=== PATIENT | female | born 1940 | race American Indian/Alaskan Native ===

== ENCOUNTER 2019-09-04 21:04 | Inpatient (IN) | payer MEDICARE ==
--- NOTE | 2019-09-04 22:14 | Emergency Department Report ---
Blank Doc - Documentation Documentation: 78-year-old female that presents with aggressive behavior and needs medical cl earance for [facility]. This initial assessment/diagnostic orders/clinical plan/treatment(s) is/are subject to change based on patient's health status, clinical progression and re- assessment by fellow clinical providers in the ED. Further treatment and workup at subsequent clinical providers discretion. Patient/guardians urged not to elope from the ED as their condition may be serious if not clinically assessed and managed. Initial orders include: 1- Patient sent to MAIN ED for further evaluation and treatment 2- labs 3- UA
[2019-09-04 23:37] LABS: Basophils % (Auto) 0.5 % (0.0-1.8); Eosinophils # (Auto) 0.1 K/mm3 (0.0-0.4); Eosinophils % (Auto) 1.7 % (0.0-4.3); Hematocrit 41.3 % (30.3-42.9); Hemoglobin 13.2 gm/dl (10.1-14.3); Lymphocytes # (Auto) 1.3 K/mm3 (1.2-5.4); Lymphocytes % (Auto) 16.4 % (13.4-35.0); Mean Corpuscular HGB Conc 32 % (30-34); Mean Corpuscular Volume 94 fl (79-97); Monocytes # (Auto) 0.5 K/mm3 (0.0-0.8); Monocytes % (Auto) 6.4 % (0.0-7.3); Platelet Count 347 K/mm3 (140-440); Red Blood Count 4.38 M/mm3 (3.65-5.03)
[2019-09-05 00:03] LABS: Albumin 3.7 g/dL (3.9-5); Calcium 9.8 mg/dL (8.4-10.2)
--- NOTE | 2019-09-05 00:14 | Emergency Department Report ---
ED Psych HPI - General Chief Complaint: Medical Clearance Stated Complaint: MEDICAL CLEARANCE Time Seen by Provider: 09/04/19 22:12 Source: patient Mode of arrival: Ambulatory - History of Present Illness Initial Comments: 78-year-old female with a past medical history dementia, hypertension and as per medical record seizures, hypothyroidism, and elevated cholesterol presents to the hospital complains of combative behavior. Patient just minutes [facility] AugustSeptember 04. She was discharged back to the personal long term. Within one hour of discharge she was combative with a with personal long term staff and was brought back to the ED for medical clearance to return to [facility]. Patient is, cooperative here. She is oriented to self, she knows she is in the hospital, and states the year is . She oes not know why she is here today. As per paperwork from [facility] patient has a diagnosis of neurocognitive disorder labs requested from [facility] - Related Data Home Medications Medication Instructions Recorded Confirmed Last Taken Aspirin 325 mg PO DAILY 09/05/19 09/05/19 Unknown Escitalopram 10 mg PO DAILY 09/05/19 09/05/19 Unknown Flonase 50 meq PO DAILY 09/05/19 09/05/19 Unknown Levothyroxine 25 mg PO DAILY 09/05/19 09/05/19 Unknown Memantine 5 mg PO DAILY 09/05/19 09/05/19 Unknown Metoprolol [Lopressor TAB] 50 mg PO BID 09/05/19 09/05/19 Unknown Pravastatin 40 mg PO HS 09/05/19 09/05/19 Unknown RisperDAL 0.5 mg PO TID 09/05/19 09/05/19 Unknown aMILoride/HYDROCHLOROTHIAZIDE 25 mg PO DAILY 09/05/19 09/05/19 Unknown amLODIPine 5 mg PO DAILY 09/05/19 09/05/19 Unknown levETIRAcetam 750 mg PO TID 09/05/19 09/05/19 Unknown Allergies Allergy/AdvReac Type Severity Reaction Status Date / Time No Known Allergies Allergy Verified 09/05/19 00:30 ED Review of Systems ROS: Stated complaint: MEDICAL CLEARANCE Other details as noted in HPI ED Past Medical Hx - Past Medical History Previous Medical History?: Yes Hx Hypertension: Yes Hx Seizures: Yes Hx Dementia: Yes Additional medical history: Hypothyroidism - Surgical History Past Surgical History?: Yes Additional Surgical History: Left humerus - Social History Smoking Status: Never Smoker Substance Use Type: None - Medications Home Medications: Home Medications Medication Instructions Recorded Confirmed Last Taken Type Aspirin 325 mg PO DAILY 09/05/19 09/05/19 Unknown History Escitalopram 10 mg PO DAILY 09/05/19 09/05/19 Unknown History Flonase 50 meq PO DAILY 09/05/19 09/05/19 Unknown History Levothyroxine 25 mg PO DAILY 09/05/19 09/05/19 Unknown History Memantine 5 mg PO DAILY 09/05/19 09/05/19 Unknown History Metoprolol [Lopressor TAB] 50 mg PO BID 09/05/19 09/05/19 Unknown History Pravastatin 40 mg PO HS 09/05/19 09/05/19 Unknown History RisperDAL 0.5 mg PO TID 09/05/19 09/05/19 Unknown History aMILoride/HYDROCHLOROTHIAZIDE 25 mg PO DAILY 09/05/19 09/05/19 Unknown History amLODIPine 5 mg PO DAILY 09/05/19 09/05/19 Unknown History levETIRAcetam 750 mg PO TID 09/05/19 09/05/19 Unknown History ED Physical Exam - General Limitations: No Limitations ED Course Vital Signs 09/04/19 09/05/19 21:16 00:11 Temperature 98.6 F Pulse Rate 61 Respiratory 18 17 Rate Blood Pressure 106/66 O2 Sat by Pulse 94 Oximetry - Consultations Consultation #1: 09/05/19 01:37 case d/e Nephro Dr Ruelas rec obs, hydration, repeat cr and hold hctz ED Medical Decision Making - Lab Data Result diagrams: 09/04/19 22:44 09/04/19 22:44 Lab Results 09/04/19 09/04/19 09/04/19 Range/Units 22:44 22:44 22:44 WBC 7.7 (4.5-11.0) K/mm3 RBC 4.38 (3.65-5.03) M/mm3 Hgb 13.2 (10.1-14.3) gm/dl Hct 41.3 (30.3-42.9) % MCV 94 (79-97) fl MCH 30 (28-32) pg MCHC 32 (30-34) % RDW 14.0 (13.2-15.2) % Plt Count 347 (140-440) K/mm3 Lymph % (Auto) 16.4 (13.4-35.0) % [place] % (Auto) 6.4 (0.0-7.3) % Eos % (Auto) 1.7 (0.0-4.3) % Baso % (Auto) 0.5 (0.0-1.8) % Lymph # 1.3 (1.2-5.4) K/mm3 [place] # 0.5 (0.0-0.8) K/mm3 Eos # 0.1 (0.0-0.4) K/mm3 Baso # 0.0 (0.0-0.1) K/mm3 Seg Neutrophils % 75.0 H (40.0-70.0) % Seg Neutrophils # 5.8 (1.8-7.7) K/mm3 Sodium 141 (137-145) mmol/L Potassium 3.3 L (3.6-5.0) mmol/L Chloride 102.5 (98-107) mmol/L Carbon Dioxide 25 (22-30) mmol/L Anion Gap 17 mmol/L BUN 30 H (7-17) mg/dL Creatinine 2.3 H (0.7-1.2) mg/dL Estimated GFR 25 ml/min BUN/Creatinine Ratio 13 % Glucose 112 H (65-100) mg/dL Calcium 9.8 (8.4-10.2) mg/dL Total Bilirubin 0.40 (0.1-1.2) mg/dL AST 20 (5-40) units/L ALT 15 (7-56) units/L Alkaline Phosphatase 144 H (35-129) units/L Total Protein 7.5 (6.3-8.2) g/dL Albumin 3.7 L (3.9-5) g/dL Albumin/Globulin Ratio 1.0 % Salicylates 0.4 L (2.8-20.0) mg/dL Acetaminophen (10.0-30.0) ug/mL Plasma/Serum Alcohol (0-0.07) % 09/04/19 09/04/19 Range/Units 22:44 22:44 WBC (4.5-11.0) K/mm3 RBC (3.65-5.03) M/mm3 Hgb (10.1-14.3) gm/dl Hct (30.3-42.9) % MCV (79-97) fl MCH (28-32) pg MCHC (30-34) % RDW (13.2-15.2) % Plt Count (140-440) K/mm3 Lymph % (Auto) (13.4-35.0) % [place] % (Auto) (0.0-7.3) % Eos % (Auto) (0.0-4.3) % Baso % (Auto) (0.0-1.8) % Lymph # (1.2-5.4) K/mm3 [place] # (0.0-0.8) K/mm3 Eos # (0.0-0.4) K/mm3 Baso # (0.0-0.1) K/mm3 Seg Neutrophils % (40.0-70.0) % Seg Neutrophils # (1.8-7.7) K/mm3 Sodium (137-145) mmol/L Potassium (3.6-5.0) mmol/L Chloride (98-107) mmol/L Carbon Dioxide (22-30) mmol/L Anion Gap mmol/L BUN (7-17) mg/dL Creatinine (0.7-1.2) mg/dL Estimated GFR ml/min BUN/Creatinine Ratio % Glucose (65-100) mg/dL Calcium (8.4-10.2) mg/dL Total Bilirubin (0.1-1.2) mg/dL AST (5-40) units/L ALT (7-56) units/L Alkaline Phosphatase (35-129) units/L Total Protein (6.3-8.2) g/dL Albumin (3.9-5) g/dL Albumin/Globulin Ratio % Salicylates (2.8-20.0) mg/dL Acetaminophen < 5.0 L (10.0-30.0) ug/mL Plasma/Serum Alcohol < 0.01 (0-0.07) % - Medical Decision Making Patient brought in for combative behavior with known dementia and neurocognitive disorder. Patient's is calm and cooperative in the ED. Labs reveal worsening renal function compared to recent admission creatinine at [facility]. On Aug patient had a baby and creatinine are 24 and 1.3. IV fluids ordered for hydration. Plan to admit to the hospital for further workup and treatment for acute renal insufficiency. Case discussed with nephrology. Hospitalist informed - Differential Diagnosis willis, dementia, delerium Critical Care Time: No Critical care attestation.: If time is entered above; I have spent that time in minutes in the direct care o f this critically ill patient, excluding procedure time. ED Disposition Clinical Impression: Acute renal insufficiency, Dementia Disposition: OP ADMIT IP TO THIS HOSP Is pt being admited?: Yes Condition: Stable Time of Disposition: 01:39
[2019-09-05] MEDS ORDERED: POTASSIUM CHLORIDE ER 10 MEQ TAB PO ONE (00:29)
[2019-09-05] MEDS ORDERED: SODIUM CHLORIDE 0.9% 1000 ML 1,000 ML IV ONE (01:12)
[2019-09-05 01:57] LABS: Amphetamine Screen,Urine PRESUMPTIVE NEGATIVE; Benzodiazepines Screen,Urine PRESUMPTIVE NEGATIVE; Cannabinoid Screen,Urine PRESUMPTIVE NEGATIVE; Cocaine Screen,Urine PRESUMPTIVE NEGATIVE; Methadone Screen,Urine PRESUMPTIVE NEGATIVE; Opiate Screen,Urine PRESUMPTIVE NEGATIVE
[2019-09-05] MEDS ORDERED: ACETAMINOPHEN 325 MG TAB PO PRN (02:20)
[2019-09-05] MEDS ORDERED: ONDANSETRON 4 MG/2 ML INJ IV PRN (02:20)
--- NOTE | 2019-09-05 02:27 | History and Physical Report ---
History of Present Illness Date of examination: 09/05/19 History of present illness: 78-year-old and a history of dementia, hypertension, hypothyroidism, hyperlipidemia was discharged from [facility] yesterday where she was admitted for combative behavior. She was discharged back to her personal [facility], however when she got back to the personal fdc she became combative again. She was taken to a [facility] for admission however she needs medical clearance before she can go back to [facility]. Patient has been on hydrochlorothiazide, labs shows that she is acute renal insufficiency. She is unable to give a history, review of system unobtainable PAST MEDICAL HISTORY: dementia, hypertension, hypothyroidism, hyperlipidemia PAST SURGICAL HISTORY: Unknown SOCIAL HISTORY: no alcohol, drugs or tobacco FAMILY HISTORY: Unknown Medications and Allergies Allergies Allergy/AdvReac Type Severity Reaction Status Date / Time No Known Allergies Allergy Verified 09/05/19 00:30 Home Medications Medication Instructions Recorded Confirmed Last Taken Type Aspirin 325 mg PO DAILY 09/05/19 09/05/19 Unknown History Escitalopram 10 mg PO DAILY 09/05/19 09/05/19 Unknown History Flonase 50 meq PO DAILY 09/05/19 09/05/19 Unknown History Levothyroxine 25 mg PO DAILY 09/05/19 09/05/19 Unknown History Memantine 5 mg PO DAILY 09/05/19 09/05/19 Unknown History Metoprolol [Lopressor TAB] 50 mg PO BID 09/05/19 09/05/19 Unknown History Pravastatin 40 mg PO HS 09/05/19 09/05/19 Unknown History RisperDAL 0.5 mg PO TID 09/05/19 09/05/19 Unknown History aMILoride/HYDROCHLOROTHIAZIDE 25 mg PO DAILY 09/05/19 09/05/19 Unknown History amLODIPine 5 mg PO DAILY 09/05/19 09/05/19 Unknown History levETIRAcetam 750 mg PO TID 09/05/19 09/05/19 Unknown History Active Meds: Active Medications Acetaminophen (Tylenol) 650 mg PO Q4H PRN PRN Reason: Pain MILD(1-3)/Fever >100.5/ROBERTS Enoxaparin Sodium (Enoxaparin) 30 mg SUB-Q QDAY VISHAL Sodium Chloride (Nacl 0.9% 1000 Ml) 1,000 mls @ 250 mls/hr IV ONCE ONE Stop: 09/05/19 05:11 Last Admin: 09/05/19 01:44 Dose: 250 mls/hr Documented by: Sodium Chloride (Nacl 0.45% 1000 Ml) 1,000 mls @ 125 mls/hr IV DIRECT VISHAL Ondansetron HCl (Zofran) 4 mg IV Q8H PRN PRN Reason: Nausea And Vomiting Sodium Chloride (Sodium Chloride Flush Syringe 10 Ml) 10 ml IV BID VISHAL Sodium Chloride (Sodium Chloride Flush Syringe 10 Ml) 10 ml IV PRN PRN PRN Reason: LINE FLUSH Exam - Physical Exam Narrative exam: Gen. appearance: Patient lying in bed, no apparent distress HEENT: Normocephalic, atraumatic, pupils equally round and reactive to light, extraocular movement intact, and no sclericterus,. No JVD or thyromegaly or nodule,neck supple, no carotid bruit ,mucous membranes moist, no exudate or erythema Heart: S1, S2, regular rate and rhythm Lungs: Clear bilaterally, breathing comfortable Abdomen: Positive bowel sounds, non-tender, nondistended, no organomegaly Extremity:no edema cyanosis, clubbing Skin: no rash, dry, warm Neuro: Oriented 3, cranial nerves II-12 intact, speech is fluent, motor and sensory intact - Constitutional Vitals: Temp Pulse Resp BP Pulse Ox 98.6 F 61 17 106/66 94 09/04/19 21:16 09/04/19 21:16 09/05/19 00:11 09/04/19 21:16 09/04/19 21:16 Results - Labs CBC & Chem 7: 09/04/19 22:44 09/04/19 22:44 Labs: Abnormal lab results 09/04/19 09/04/19 09/04/19 Range/Units 22:44 22:44 22:44 Seg Neutrophils % 75.0 H (40.0-70.0) % Potassium 3.3 L (3.6-5.0) mmol/L BUN 30 H (7-17) mg/dL Creatinine 2.3 H (0.7-1.2) mg/dL Glucose 112 H (65-100) mg/dL Alkaline Phosphatase 144 H (35-129) units/L Albumin 3.7 L (3.9-5) g/dL Salicylates 0.4 L (2.8-20.0) mg/dL Acetaminophen (10.0-30.0) ug/mL 09/04/19 Range/Units 22:44 Seg Neutrophils % (40.0-70.0) % Potassium (3.6-5.0) mmol/L BUN (7-17) mg/dL Creatinine (0.7-1.2) mg/dL Glucose (65-100) mg/dL Alkaline Phosphatase (35-129) units/L Albumin (3.9-5) g/dL Salicylates (2.8-20.0) mg/dL Acetaminophen < 5.0 L (10.0-30.0) ug/mL Assessment and Plan Assessment Acute renal insufficiency most likely secondary to hydrochlorothiazide Start IV fluid, renal was consulted to see the patient hold diuretic Hypertension continue outpatient medications Hypothyroidism continue Synthroid Dementia Continue Namenda, Risperdal, Lexapro
[2019-09-05] MEDS ORDERED: SODIUM CHLORIDE 0.45% 1000 ML 1,000 ML IV SCH (03:00)
[2019-09-05 03:44] LABS: Basophils % (Auto) 0.5 % (0.0-1.8); Eosinophils # (Auto) 0.2 K/mm3 (0.0-0.4); Eosinophils % (Auto) 2.3 % (0.0-4.3); Hematocrit 39.9 % (30.3-42.9); Lymphocytes # (Auto) 2.1 K/mm3 (1.2-5.4); Mean Corpuscular HGB Conc 33 % (30-34); Mean Corpuscular Volume 94 fl (79-97); Monocytes # (Auto) 0.8 K/mm3 (0.0-0.8); Monocytes % (Auto) 10.1 % (0.0-7.3); Platelet Count 346 K/mm3 (140-440); Red Blood Count 4.23 M/mm3 (3.65-5.03); Red Cell Distribution Width 14.2 % (13.2-15.2)
[2019-09-05 04:06] LABS: Calcium 9.6 mg/dL (8.4-10.2)
[2019-09-05] MEDS: LEVOTHYROXINE 25 MCG TAB PO SCH (06:45)
[2019-09-05] MEDS ORDERED: NON-FORMULARY EACH (Levetiracetam 750 MG) PO SCH (08:00)
[2019-09-05] MEDS ORDERED: RISPERDAL 0.5 MG PO SCH (08:00)
[2019-09-05] MEDS: levETIRAcetam 500 MG/5 ML ORAL LIQD PO SCH ×5 (08:45→22:20)
[2019-09-05] MEDS: METOPROLOL TARTRATE 50 MG TAB PO SCH ×3 (09:18→22:21)
[2019-09-05] MEDS: ASPIRIN 325 MG TAB PO SCH ×2 (09:18→12:30)
[2019-09-05] MEDS: amLODIPine 5 MG TAB PO SCH ×2 (09:18→12:29)
[2019-09-05] MEDS: ESCITALOPRAM 10 MG TAB PO SCH ×2 (09:19→12:25)
[2019-09-05] MEDS: risperiDONE 0.25 MG TAB PO SCH ×4 (09:19→22:20)
[2019-09-05] MEDS: ENOXAPARIN 30 MG/0.3 ML INJ SUB-Q SCH (09:32)
[2019-09-05] MEDS ORDERED: LEVOTHYROXINE 25 MG PO SCH (10:00)
[2019-09-05] MEDS ORDERED: NON-FORMULARY EACH (Memantine 5 MG) PO SCH (10:00)
[2019-09-05] MEDS ORDERED: ASPIRIN 325 MG PO SCH (10:00)
[2019-09-05] MEDS ORDERED: NON-FORMULARY EACH (Escitalopram 10 MG) PO SCH (10:00)
--- NOTE | 2019-09-05 10:24 | Consultation ---
History of Present Illness - Reason for Consult Consult date: 09/05/19 acute renal failure Requesting physician: MEENAKSHI LOPEZ - History of Present Illness 78-year-old lady discharged from [place] to the personal residential and became combative there and so she was brought to the hospital. Labs showed elevated BUNs/creatinine at 30/2.3 mg/dL. I'm consulted to assist with managing this. Patient is a poor historian so history is obtained by review of the records. There is no no documented history of receiving any NSAIDs or recent exposure to radiocontrast. Past History Past Medical History: hypertension, hyperlipidemia, other (dementia) Past Surgical History: Other (unable to obtain) Social history: other (unable to obtain) Family history: other (unable to obtain) Medications and Allergies Allergies Allergy/AdvReac Type Severity Reaction Status Date / Time No Known Allergies Allergy Verified 09/05/19 00:30 Home Medications Medication Instructions Recorded Confirmed Last Taken Type Aspirin 325 mg PO DAILY 09/05/19 09/05/19 Unknown History Escitalopram 10 mg PO DAILY 09/05/19 09/05/19 Unknown History Flonase 50 meq PO DAILY 09/05/19 09/05/19 Unknown History Levothyroxine 25 mg PO DAILY 09/05/19 09/05/19 Unknown History Memantine 5 mg PO DAILY 09/05/19 09/05/19 Unknown History Metoprolol [Lopressor TAB] 50 mg PO BID 09/05/19 09/05/19 Unknown History Pravastatin 40 mg PO HS 09/05/19 09/05/19 Unknown History RisperDAL 0.5 mg PO TID 09/05/19 09/05/19 Unknown History aMILoride/HYDROCHLOROTHIAZIDE 25 mg PO DAILY 09/05/19 09/05/19 Unknown History amLODIPine 5 mg PO DAILY 09/05/19 09/05/19 Unknown History levETIRAcetam 750 mg PO TID 09/05/19 09/05/19 Unknown History Active Meds: Active Medications Acetaminophen (Tylenol) 650 mg PO Q4H PRN PRN Reason: Pain MILD(1-3)/Fever >100.5/ROBERTS Amlodipine Besylate (Amlodipine) 5 mg PO DAILY [facility] Last Admin: 09/05/19 09:18 Dose: 5 mg Documented by: Aspirin (Aspirin) 325 mg PO DAILY [facility] Last Admin: 09/05/19 09:18 Dose: 325 mg Documented by: Enoxaparin Sodium (Enoxaparin) 30 mg SUB-Q QDAY [facility] Last Admin: 09/05/19 09:32 Dose: 30 mg Documented by: Escitalopram Oxalate (Lexapro) 10 mg PO DAILY [facility] Last Admin: 09/05/19 09:19 Dose: 10 mg Documented by: Sodium Chloride (Nacl 0.45% 1000 Ml) 1,000 mls @ 125 mls/hr IV DIRECT [facility] Levetiracetam (Keppra) 750 mg PO TID [facility] Last Admin: 09/05/19 09:19 Dose: 750 mg Documented by: Levothyroxine Sodium (Synthroid) 25 mcg PO DAILY@0600 [facility] Last Admin: 09/05/19 06:45 Dose: Not Given Documented by: Memantine (Memantine) 5 mg PO DAILY [facility] Metoprolol Tartrate (Metoprolol) 50 mg PO BID [facility] Last Admin: 09/05/19 09:18 Dose: 50 mg Documented by: Ondansetron HCl (Zofran) 4 mg IV Q8H PRN PRN Reason: Nausea And Vomiting Pravastatin Sodium (Pravachol) 40 mg PO QHS [facility] Risperidone (Risperdal) 0.5 mg PO TID [facility] Last Admin: 09/05/19 09:19 Dose: 0.5 mg Documented by: Sodium Chloride (Sodium Chloride Flush Syringe 10 Ml) 10 ml IV BID [facility] Last Admin: 09/05/19 09:33 Dose: 10 ml Documented by: Sodium Chloride (Sodium Chloride Flush Syringe 10 Ml) 10 ml IV PRN PRN PRN Reason: LINE FLUSH Review of Systems ROS unobtainable: due to mental status Exam - Vital Signs Vital signs: Vital Signs Temp Pulse Resp BP Pulse Ox 98.6 F 61 18 106/66 94 09/04/19 21:16 09/04/19 21:16 09/04/19 21:16 09/04/19 21:16 09/04/19 21:16 - Physical Exam Narrative exam: Elderly -[place] female sitting on a chair in no acute distress HEENT: NCAT, pink oral mucous membrane Neck: Supple, no venous distention CVS: S1S2 RRR with no murmur, rub or gallop Chest: Clear to auscultation Abdomen: Protuberant, soft, nontender, no organomegaly, bowel sounds are present Extremities: No edema Genitourinary deferred Neuro: Awake, alert no focal deficits Results - Lab Results 09/05/19 03:25 09/05/19 03:25 Most recent lab results Calcium 9.6 mg/dL (8.4-10.2) 09/05/19 03:25 Assessment and Plan - Patient Problems (1) Acute kidney injury Current Visit: Yes Status: Acute Plan to address problem: Acute kidney injury probably prerenal azotemia secondary to volume depletion secondary to diuretics. Get urine studies. Get kidney and bladder ultrasound. Continue volume repletion. Follow-up electrolytes and renal function. (2) Hypokalemia Current Visit: Yes Status: Acute Plan to address problem: Thiazide diuretic on hold. Supplement potassium and follow-up level. (3) Hypertension Current Visit: Yes Status: Acute Plan to address problem: Blood pressure was low on presentation. Follow blood pressure and start hydralazine if it becomes elevated. We'll avoid negative chronotropic drugs as heart rate was low on presentation. (4) Dementia Current Visit: Yes Status: Acute Plan to address problem: Continue management by primary attending/psychiatry
[2019-09-05] MEDS: MEMANTINE 5 MG TAB PO SCH (12:10)
--- NOTE | 2019-09-05 12:52 | Event Note ---
Date: 09/05/19 Patient with dementia presents with combative behaviour, ANNA. I have seen and examined her.
[2019-09-05 16:20] LABS: Creatinine,Urine 230.6 mg/dL (0.1-20.0)
[2019-09-05 16:41] LABS: Bilirubin,Urine NEG (Negative); Blood,Urine NEG (Negative); Color,Urine Yellow (Yellow); Protein,Urine <15 mg/dL mg/dL (Negative)
--- NOTE | 2019-09-05 16:56 | Ultrasound Report ---
Renal ultrasound. 09/05/2019. HISTORY: Acute renal injury. FINDINGS: Right kidney measures 8.8 cm. Cortex measures 1.1 cm. Multiple cysts are present. The largest is at t he upper pole measuring 5.7 cm. Left kidney measures 9.4 cm. Cortex measures 1.1 cm. Multiple cysts are present with the largest at t he upper/midpole measuring 2.1 cm. Negative for mass or obstruction. Cortical echogenicity is mildly increased. The bladder contains moderate urine. IMPRESSION: 1. Bilateral renal cysts right greater than left. 2. Renal cortical thinning and increased cortical echogenicity compatible with chronic medical renal disease. Signer Name: Robert Dickerson MD Signed: 09/05/2019 4:52 PM Workstation Name: [id number]
[2019-09-05] MEDS ORDERED: NON-FORMULARY EACH (Pravastatin 40 MG) PO SCH (22:00)
[2019-09-05] MEDS: PRAVASTATIN 40 MG TAB PO SCH (22:21)
[2019-09-06 05:25] LABS: Calcium 9.4 mg/dL (8.4-10.2)
[2019-09-06] MEDS: LEVOTHYROXINE 25 MCG TAB PO SCH (05:42)
--- NOTE | 2019-09-06 08:44 | Progress Note ---
Assessment and Plan - Patient Problems (1) Acute kidney injury Current Visit: Yes Status: Acute Plan to address problem: Acute kidney injury secondary to prerenal azotemia secondary to volume depletion secondary to diuretics, superimposed on CKD. Get urine studies. renal US shows echogenic kidneys b/l c/w CKD. renal function improving with IV hydration (2) Hypokalemia Current Visit: Yes Status: Acute Plan to address problem: Thiazide diuretic on hold. Supplement potassium and follow-up level. (3) Hypertension Current Visit: Yes Status: Acute Plan to address problem: Follow blood pressure and start hydralazine if it becomes elevated. We'll torri id negative chronotropic drugs as heart rate was low on presentation. (4) Dementia Current Visit: Yes Status: Acute Plan to address problem: Continue management by primary attending/psychiatry Subjective Date of service: 09/06/19 Principal diagnosis: ANNA Interval history: Pt awake, not oriented, confused. Objective - Vital Signs Vital signs: Vital Signs - 12hr 09/05/19 09/06/19 09/06/19 21:14 01:48 08:06 Temperature 98.2 F 97.8 F 98.1 F Pulse Rate 57 L 57 L 58 L Respiratory 18 18 Rate Blood Pressure 125/59 151/67 133/61 O2 Sat by Pulse 98 97 91 Oximetry - General Appearance General appearance: well-developed, well-nourished, appears stated age EENT: ATNC, PERRL, mucous membranes moist Neck: no JVD Respiratory: Present: Clear to Ascultation Cardiology: regular, S1S2 Gastrointestinal: normoactive bowel sounds Integumentary: no rash, other (no edema ) Neurologic: no focal deficit, strength 5/5, CN 3-12 intact - Lab 09/05/19 03:25 09/06/19 03:56 Most recent lab results Calcium 9.4 mg/dL (8.4-10.2) 09/06/19 03:56 Magnesium 2.00 mg/dL (1.7-2.3) 09/06/19 03:56 Urine Creatinine 230.6 mg/dL (0.1-20.0) H 09/05/19 15:35 Urine Sodium 88 mmol/L 09/05/19 15:35 Urine Total Protein 20 mg/dL (5-11.8) H 09/05/19 15:35 Medications & Allergies - Medications Allergies/Adverse Reactions: Allergies No Known Allergies Allergy (Verified 09/05/19 00:30) Home Medications: Home Medications Medication Instructions Recorded Confirmed Last Taken Type Aspirin 325 mg PO DAILY 09/05/19 09/05/19 Unknown History Escitalopram 10 mg PO DAILY 09/05/19 09/05/19 Unknown History Flonase 50 meq PO DAILY 09/05/19 09/05/19 Unknown History Levothyroxine 25 mg PO DAILY 09/05/19 09/05/19 Unknown History Memantine 5 mg PO DAILY 09/05/19 09/05/19 Unknown History Metoprolol [Lopressor TAB] 50 mg PO BID 09/05/19 09/05/19 Unknown History Pravastatin 40 mg PO HS 09/05/19 09/05/19 Unknown History RisperDAL 0.5 mg PO TID 09/05/19 09/05/19 Unknown History aMILoride/HYDROCHLOROTHIAZIDE 25 mg PO DAILY 09/05/19 09/05/19 Unknown History amLODIPine 5 mg PO DAILY 09/05/19 09/05/19 Unknown History levETIRAcetam 750 mg PO TID 09/05/19 09/05/19 Unknown History Active Medications: Generic Name Dose Route Start Last Admin Trade Name Freq PRN Reason Stop Dose Admin Acetaminophen 650 mg 09/05/19 02:20 Tylenol PO Q4H PRN Pain MILD(1-3)/Fever >100.5/ROBERTS Amlodipine Besylate 5 mg 09/05/19 10:00 09/05/19 12:29 Amlodipine PO 5 mg DAILY VISHAL Administration Aspirin 325 mg 09/05/19 10:00 09/05/19 12:30 Aspirin PO 325 mg DAILY VISHAL Administration Enoxaparin Sodium 30 mg 09/05/19 10:00 09/05/19 09:32 Enoxaparin SUB-Q 30 mg QDAY VISHAL Administration Escitalopram Oxalate 10 mg 09/05/19 10:00 09/05/19 12:25 Lexapro PO 10 mg DAILY VISHAL Administration Sodium Chloride 1,000 mls @ 125 mls/hr 09/05/19 03:00 Nacl 0.45% 1000 Ml IV DIRECT VISHAL Levetiracetam 750 mg 09/05/19 08:00 09/05/19 22:20 Keppra PO Not Given TID VISHAL Levothyroxine Sodium 25 mcg 09/05/19 06:00 09/06/19 05:42 Synthroid PO Not Given DAILY@0600 VISHAL Memantine 5 mg 09/05/19 10:00 09/05/19 12:10 Memantine PO Not Given DAILY VISHAL Metoprolol Tartrate 50 mg 09/05/19 10:00 09/05/19 22:21 Metoprolol PO Not Given BID VISHAL Ondansetron HCl 4 mg 09/05/19 02:20 Zofran IV Q8H PRN Nausea And Vomiting Pravastatin Sodium 40 mg 09/05/19 22:00 09/05/19 22:21 Pravachol PO Not Given QHS VISHAL Risperidone 0.5 mg 09/05/19 08:00 09/05/19 22:20 Risperdal PO Not Given TID VISHAL Sodium Chloride 10 ml 09/05/19 10:00 09/05/19 23:25 Sodium Chloride Flush Syringe 10 Ml IV 10 ml BID VISHAL Administration Sodium Chloride 10 ml 09/05/19 02:20 Sodium Chloride Flush Syringe 10 Ml IV PRN PRN LINE FLUSH
[2019-09-06] MEDS ORDERED: POTASSIUM CHLORIDE ER 20 MEQ TAB PO ONE ×2 (09:00→23:22)
[2019-09-06] MEDS: risperiDONE 0.25 MG TAB PO SCH ×3 (09:09→22:23)
[2019-09-06] MEDS: levETIRAcetam 500 MG/5 ML ORAL LIQD PO SCH ×3 (09:09→22:22)
[2019-09-06] MEDS: amLODIPine 5 MG TAB PO SCH (09:59)
[2019-09-06] MEDS: ASPIRIN 325 MG TAB PO SCH (10:00)
[2019-09-06] MEDS: ESCITALOPRAM 10 MG TAB PO SCH (10:01)
[2019-09-06] MEDS: METOPROLOL TARTRATE 50 MG TAB PO SCH ×2 (10:01→23:47)
[2019-09-06] MEDS: ENOXAPARIN 30 MG/0.3 ML INJ SUB-Q SCH (10:01)
[2019-09-06] MEDS: MEMANTINE 5 MG TAB PO SCH (10:06)
--- NOTE | 2019-09-06 11:25 | Progress Note ---
Assessment and Plan Assessment and plan: Acute kidney injury due to vasomotor nephropathy Improving Started IV fluid, held diuretic Nephrology following Acute metabolic encephalopathy neurochecks supportive care Hypertension continue outpatient medications Hypothyroidism continue Synthroid Dementia Continue Namenda, Risperdal, Lexapro History Interval history: Altered mental status Hospitalist Physical - Physical exam Narrative exam: Gen: Not in acute distress, lying in bed HEENT: Normocephalic, atraumatic Neck: supple, no JVD Heart: S1 and S2 reg, no murmurs, rubs or gallop Lungs: Clear to auscultation, no wheezing Abd: soft, non tender , non distended, normal BS Ext: No edema, no clubbing, no cyanosis Neuro: Awake,alert, oriented to person, not to place or time, confused, moves all ext - Constitutional Vitals: Temp Pulse Resp BP Pulse Ox 98.1 F 61 18 103/68 91 09/06/19 08:06 09/06/19 09:59 09/06/19 01:48 09/06/19 09:59 09/06/19 08:06 Results - Labs CBC & Chem 7: 09/05/19 03:25 09/07/19 04:26 Labs: Laboratory Last Values WBC 8.2 K/mm3 (4.5-11.0) 09/05/19 03:25 RBC 4.23 M/mm3 (3.65-5.03) 09/05/19 03:25 Hgb 13.0 gm/dl (10.1-14.3) 09/05/19 03:25 Hct 39.9 % (30.3-42.9) 09/05/19 03:25 MCV 94 fl (79-97) 09/05/19 03:25 MCH 31 pg (28-32) 09/05/19 03:25 MCHC 33 % (30-34) 09/05/19 03:25 RDW 14.2 % (13.2-15.2) 09/05/19 03:25 Plt Count 346 K/mm3 (140-440) 09/05/19 03:25 Lymph % (Auto) 26.0 % (13.4-35.0) 09/05/19 03:25 [place] % (Auto) 10.1 % (0.0-7.3) H 09/05/19 03:25 Eos % (Auto) 2.3 % (0.0-4.3) 09/05/19 03:25 Baso % (Auto) 0.5 % (0.0-1.8) 09/05/19 03:25 Lymph # 2.1 K/mm3 (1.2-5.4) 09/05/19 03:25 [place] # 0.8 K/mm3 (0.0-0.8) 09/05/19 03:25 Eos # 0.2 K/mm3 (0.0-0.4) 09/05/19 03:25 Baso # 0.0 K/mm3 (0.0-0.1) 09/05/19 03:25 Seg Neutrophils % 61.1 % (40.0-70.0) 09/05/19 03:25 Seg Neutrophils # 5.0 K/mm3 (1.8-7.7) 09/05/19 03:25 Sodium 143 mmol/L (137-145) 09/06/19 03:56 Potassium 3.4 mmol/L (3.6-5.0) L 09/06/19 03:56 Chloride 105.4 mmol/L (98-107) 09/06/19 03:56 Carbon Dioxide 24 mmol/L (22-30) 09/06/19 03:56 Anion Gap 17 mmol/L 09/06/19 03:56 BUN 30 mg/dL (7-17) H 09/06/19 03:56 Creatinine 1.7 mg/dL (0.7-1.2) H 09/06/19 03:56 Estimated GFR 35 ml/min 09/06/19 03:56 BUN/Creatinine Ratio 18 % 09/06/19 03:56 Glucose 95 mg/dL (65-100) 09/06/19 03:56 Calcium 9.4 mg/dL (8.4-10.2) 09/06/19 03:56 Magnesium 2.00 mg/dL (1.7-2.3) 09/06/19 03:56 Total Bilirubin 0.40 mg/dL (0.1-1.2) 09/04/19 22:44 AST 20 units/L (5-40) 09/04/19 22:44 ALT 15 units/L (7-56) 09/04/19 22:44 Alkaline Phosphatase 144 units/L (35-129) H 09/04/19 22:44 Total Protein 7.5 g/dL (6.3-8.2) 09/04/19 22:44 Albumin 3.7 g/dL (3.9-5) L 09/04/19 22:44 Albumin/Globulin Ratio 1.0 % 09/04/19 22:44 Urine Color Yellow (Yellow) 09/05/19 15:35 Urine Turbidity Clear (Clear) 09/05/19 15:35 Urine pH 5.0 (5.0-7.0) 09/05/19 15:35 Ur Specific [place] 1.017 (1.003-1.030) 09/05/19 15:35 Urine Protein <15 mg/dl mg/dL (Negative) 09/05/19 15:35 Urine Glucose (UA) Neg mg/dL (Negative) 09/05/19 15:35 Urine Ketones Tr mg/dL (Negative) 09/05/19 15:35 Urine Blood Neg (Negative) 09/05/19 15:35 Urine Nitrite Neg (Negative) 09/05/19 15:35 Urine Bilirubin Neg (Negative) 09/05/19 15:35 Urine Urobilinogen 2.0 mg/dL (<2.0) 09/05/19 15:35 Ur Leukocyte Esterase Neg (Negative) 09/05/19 15:35 Urine WBC (Auto) 1.0 /HPF (0.0-6.0) 09/05/19 15:35 Urine RBC (Auto) 1.0 /HPF (0.0-6.0) 09/05/19 15:35 U Epithel Cells (Auto) 1.0 /HPF (0-13.0) 09/05/19 15:35 Urine Creatinine 230.6 mg/dL (0.1-20.0) H 09/05/19 15:35 Urine Sodium 88 mmol/L 09/05/19 15:35 Urine Total Protein 20 mg/dL (5-11.8) H 09/05/19 15:35 Salicylates 0.4 mg/dL (2.8-20.0) L 09/04/19 22:44 Urine Opiates Screen Presumptive negative 09/05/19 00:06 Urine Methadone Screen Presumptive negative 09/05/19 00:06 Acetaminophen < 5.0 ug/mL (10.0-30.0) L 09/04/19 22:44 Ur Barbiturates Screen Presumptive negative 09/05/19 00:06 Ur Phencyclidine Scrn Presumptive negative 09/05/19 00:06 Ur Amphetamines Screen Presumptive negative 09/05/19 00:06 U Benzodiazepines Scrn Presumptive negative 09/05/19 00:06 Urine Cocaine Screen Presumptive negative 09/05/19 00:06 U Marijuana (THC) Screen Presumptive negative 09/05/19 00:06 Drugs of Abuse Note Disclamer 09/05/19 00:06 Plasma/Serum Alcohol < 0.01 % (0-0.07) 09/04/19 22:44 Active Medications - Current Medications Current Medications: Generic Name Dose Route Start Last Admin Trade Name Freq PRN Reason Stop Dose Admin Acetaminophen 650 mg 09/05/19 02:20 Tylenol PO Q4H PRN Pain MILD(1-3)/Fever >100.5/ROBERTS Amlodipine Besylate 5 mg 09/05/19 10:00 09/06/19 09:59 Amlodipine PO Not Given DAILY VISHAL Aspirin 325 mg 09/05/19 10:00 09/06/19 10:00 Aspirin PO 325 mg DAILY VISHAL Administration Enoxaparin Sodium 30 mg 09/05/19 10:00 09/06/19 10:01 Enoxaparin SUB-Q 30 mg QDAY VISHAL Administration Escitalopram Oxalate 10 mg 09/05/19 10:00 09/06/19 10:01 Lexapro PO 10 mg DAILY VISHAL Administration Sodium Chloride 1,000 mls @ 125 mls/hr 09/05/19 03:00 Nacl 0.45% 1000 Ml IV DIRECT VISHAL Levetiracetam 750 mg 09/05/19 08:00 09/06/19 09:09 Keppra PO 750 mg TID VISHAL Administration Levothyroxine Sodium 25 mcg 09/05/19 06:00 09/06/19 05:42 Synthroid PO Not Given DAILY@0600 VISHAL Memantine 5 mg 09/05/19 10:00 09/06/19 10:06 Memantine PO 5 mg DAILY VISHAL Administration Metoprolol Tartrate 50 mg 09/05/19 10:00 09/06/19 10:01 Metoprolol PO 50 mg BID VISHAL Administration Ondansetron HCl 4 mg 09/05/19 02:20 Zofran IV Q8H PRN Nausea And Vomiting Pravastatin Sodium 40 mg 09/05/19 22:00 09/05/19 22:21 Pravachol PO Not Given QHS VISHAL Risperidone 0.5 mg 09/05/19 08:00 09/06/19 09:09 Risperdal PO 0.5 mg TID VISHAL Administration Sodium Chloride 10 ml 09/05/19 10:00 09/06/19 10:02 Sodium Chloride Flush Syringe 10 Ml IV 10 ml BID VISHAL Administration Sodium Chloride 10 ml 09/05/19 02:20 Sodium Chloride Flush Syringe 10 Ml IV PRN PRN LINE FLUSH
[2019-09-06] MEDS: PRAVASTATIN 40 MG TAB PO SCH (23:47)
[2019-09-07 05:48] LABS: Calcium 9.6 mg/dL (8.4-10.2)
[2019-09-07] MEDS: LEVOTHYROXINE 25 MCG TAB PO SCH (05:59)
[2019-09-07] MEDS: risperiDONE 0.25 MG TAB PO SCH ×2 (08:19→14:34)
[2019-09-07] MEDS: levETIRAcetam 500 MG/5 ML ORAL LIQD PO SCH ×3 (08:19→20:21)
[2019-09-07] MEDS: ESCITALOPRAM 10 MG TAB PO SCH (09:54)
[2019-09-07] MEDS: ASPIRIN 325 MG TAB PO SCH (09:54)
[2019-09-07] MEDS: ENOXAPARIN 40 MG/0.4 ML INJ SUB-Q SCH (09:54)
[2019-09-07] MEDS: amLODIPine 5 MG TAB PO SCH (09:57)
[2019-09-07] MEDS: METOPROLOL TARTRATE 50 MG TAB PO SCH (09:58)
[2019-09-07] MEDS: MEMANTINE 5 MG TAB PO SCH (09:58)
--- NOTE | 2019-09-07 13:03 | Progress Note ---
Assessment and Plan Assessment and plan: Acute kidney injury due to vasomotor nephropathy Improving. Cr was 2.3 on admission, now down to 1.3 Started IV fluid, held diuretic Nephrology following Acute metabolic encephalopathy neurochecks supportive care Hypertension continue outpatient medications Hypothyroidism continue Synthroid Dementia Continue Namenda, Risperdal, Lexapro History Interval history: Altered mental status Hospitalist Physical - Physical exam Narrative exam: Gen: Not in acute distress, lying in bed HEENT: Normocephalic, atraumatic Neck: supple, no JVD Heart: S1 and S2 reg, no murmurs, rubs or gallop Lungs: Clear to auscultation, no wheezing Abd: soft, non tender , non distended, normal BS Ext: No edema, no clubbing, no cyanosis Neuro: Awake,alert, oriented to person, not to place or time, confused, moves all ext - Constitutional Vitals: Temp Pulse Resp BP Pulse Ox 98.1 F 83 20 125/53 95 09/07/19 07:25 09/07/19 09:57 09/07/19 07:25 09/07/19 09:57 09/07/19 09:14 Results - Labs CBC & Chem 7: 09/05/19 03:25 09/07/19 04:26 Labs: Laboratory Last Values WBC 8.2 K/mm3 (4.5-11.0) 09/05/19 03:25 RBC 4.23 M/mm3 (3.65-5.03) 09/05/19 03:25 Hgb 13.0 gm/dl (10.1-14.3) 09/05/19 03:25 Hct 39.9 % (30.3-42.9) 09/05/19 03:25 MCV 94 fl (79-97) 09/05/19 03:25 MCH 31 pg (28-32) 09/05/19 03:25 MCHC 33 % (30-34) 09/05/19 03:25 RDW 14.2 % (13.2-15.2) 09/05/19 03:25 Plt Count 346 K/mm3 (140-440) 09/05/19 03:25 Lymph % (Auto) 26.0 % (13.4-35.0) 09/05/19 03:25 [place] % (Auto) 10.1 % (0.0-7.3) H 09/05/19 03:25 Eos % (Auto) 2.3 % (0.0-4.3) 09/05/19 03:25 Baso % (Auto) 0.5 % (0.0-1.8) 09/05/19 03:25 Lymph # 2.1 K/mm3 (1.2-5.4) 09/05/19 03:25 [place] # 0.8 K/mm3 (0.0-0.8) 09/05/19 03:25 Eos # 0.2 K/mm3 (0.0-0.4) 09/05/19 03:25 Baso # 0.0 K/mm3 (0.0-0.1) 09/05/19 03:25 Seg Neutrophils % 61.1 % (40.0-70.0) 09/05/19 03:25 Seg Neutrophils # 5.0 K/mm3 (1.8-7.7) 09/05/19 03:25 Sodium 141 mmol/L (137-145) 09/07/19 04:26 Potassium 3.6 mmol/L (3.6-5.0) 09/07/19 04:26 Chloride 106.2 mmol/L (98-107) 09/07/19 04:26 Carbon Dioxide 24 mmol/L (22-30) 09/07/19 04:26 Anion Gap 14 mmol/L 09/07/19 04:26 BUN 24 mg/dL (7-17) H 09/07/19 04:26 Creatinine 1.3 mg/dL (0.7-1.2) H 09/07/19 04:26 Estimated GFR 48 ml/min 09/07/19 04:26 BUN/Creatinine Ratio 18 % 09/07/19 04:26 Glucose 101 mg/dL (65-100) H 09/07/19 04:26 Calcium 9.6 mg/dL (8.4-10.2) 09/07/19 04:26 Magnesium 2.00 mg/dL (1.7-2.3) 09/06/19 03:56 Total Bilirubin 0.40 mg/dL (0.1-1.2) 09/04/19 22:44 AST 20 units/L (5-40) 09/04/19 22:44 ALT 15 units/L (7-56) 09/04/19 22:44 Alkaline Phosphatase 144 units/L (35-129) H 09/04/19 22:44 Total Protein 7.5 g/dL (6.3-8.2) 09/04/19 22:44 Albumin 3.7 g/dL (3.9-5) L 09/04/19 22:44 Albumin/Globulin Ratio 1.0 % 09/04/19 22:44 Urine Color Yellow (Yellow) 09/05/19 15:35 Urine Turbidity Clear (Clear) 09/05/19 15:35 Urine pH 5.0 (5.0-7.0) 09/05/19 15:35 Ur Specific [place] 1.017 (1.003-1.030) 09/05/19 15:35 Urine Protein <15 mg/dl mg/dL (Negative) 09/05/19 15:35 Urine Glucose (UA) Neg mg/dL (Negative) 09/05/19 15:35 Urine Ketones Tr mg/dL (Negative) 09/05/19 15:35 Urine Blood Neg (Negative) 09/05/19 15:35 Urine Nitrite Neg (Negative) 09/05/19 15:35 Urine Bilirubin Neg (Negative) 09/05/19 15:35 Urine Urobilinogen 2.0 mg/dL (<2.0) 09/05/19 15:35 Ur Leukocyte Esterase Neg (Negative) 09/05/19 15:35 Urine WBC (Auto) 1.0 /HPF (0.0-6.0) 09/05/19 15:35 Urine RBC (Auto) 1.0 /HPF (0.0-6.0) 09/05/19 15:35 U Epithel Cells (Auto) 1.0 /HPF (0-13.0) 09/05/19 15:35 Urine Creatinine 230.6 mg/dL (0.1-20.0) H 09/05/19 15:35 Urine Sodium 88 mmol/L 09/05/19 15:35 Urine Total Protein 20 mg/dL (5-11.8) H 09/05/19 15:35 Salicylates 0.4 mg/dL (2.8-20.0) L 09/04/19 22:44 Urine Opiates Screen Presumptive negative 09/05/19 00:06 Urine Methadone Screen Presumptive negative 09/05/19 00:06 Acetaminophen < 5.0 ug/mL (10.0-30.0) L 09/04/19 22:44 Ur Barbiturates Screen Presumptive negative 09/05/19 00:06 Ur Phencyclidine Scrn Presumptive negative 09/05/19 00:06 Ur Amphetamines Screen Presumptive negative 09/05/19 00:06 U Benzodiazepines Scrn Presumptive negative 09/05/19 00:06 Urine Cocaine Screen Presumptive negative 09/05/19 00:06 U Marijuana (THC) Screen Presumptive negative 09/05/19 00:06 Drugs of Abuse Note Disclamer 09/05/19 00:06 Plasma/Serum Alcohol < 0.01 % (0-0.07) 09/04/19 22:44 Active Medications - Current Medications Current Medications: Generic Name Dose Route Start Last Admin Trade Name Freq PRN Reason Stop Dose Admin Acetaminophen 650 mg 09/05/19 02:20 Tylenol PO Q4H PRN Pain MILD(1-3)/Fever >100.5/ROBERTS Amlodipine Besylate 5 mg 09/05/19 10:00 09/07/19 09:57 Amlodipine PO 5 mg DAILY VISHAL Administration Aspirin 325 mg 09/05/19 10:00 09/07/19 09:54 Aspirin PO 325 mg DAILY VISHAL Administration Enoxaparin Sodium 40 mg 09/07/19 10:00 09/07/19 09:54 Enoxaparin SUB-Q 40 mg QDAY@1000 VISHAL Administration Escitalopram Oxalate 10 mg 09/05/19 10:00 09/07/19 09:54 Lexapro PO 10 mg DAILY VISHAL Administration Sodium Chloride 1,000 mls @ 125 mls/hr 09/05/19 03:00 Nacl 0.45% 1000 Ml IV DIRECT VISHAL Levetiracetam 750 mg 09/05/19 08:00 09/07/19 08:19 Keppra PO 750 mg TID VISAHL Administration Levothyroxine Sodium 25 mcg 09/05/19 06:00 09/07/19 05:59 Synthroid PO Not Given DAILY@0600 VISHAL Memantine 5 mg 09/05/19 10:00 09/07/19 09:58 Memantine PO 5 mg DAILY VISHAL Administration Metoprolol Tartrate 50 mg 09/05/19 10:00 09/07/19 09:58 Metoprolol PO 50 mg BID VISHAL Administration Ondansetron HCl 4 mg 09/05/19 02:20 Zofran IV Q8H PRN Nausea And Vomiting Pravastatin Sodium 40 mg 09/05/19 22:00 09/06/19 23:47 Pravachol PO Not Given QHS VISHAL Risperidone 0.5 mg 09/05/19 08:00 09/07/19 08:19 Risperdal PO 0.5 mg TID VISHAL Administration Sodium Chloride 10 ml 09/05/19 10:00 09/07/19 09:58 Sodium Chloride Flush Syringe 10 Ml IV Not Given BID VISHAL Sodium Chloride 10 ml 09/05/19 02:20 Sodium Chloride Flush Syringe 10 Ml IV PRN PRN LINE FLUSH
--- NOTE | 2019-09-07 16:13 | Progress Note ---
Assessment and Plan - Patient Problems (1) Acute kidney injury Current Visit: Yes Status: Acute Plan to address problem: Acute kidney injury secondary to prerenal azotemia secondary to volume depletion secondary to diuretics, superimposed on CKD. renal US shows echogenic kidneys b/l c/w CKD. renal function improving with IV hydration (2) Hypokalemia Current Visit: Yes Status: Acute Plan to address problem: Thiazide diuretic on hold. Supplement potassium and follow-up level. (3) Hypertension Current Visit: Yes Status: Acute Plan to address problem: Follow blood pressure and start hydralazine if it becomes elevated. We'll avoid negative chronotropic drugs as heart rate was low on presentation. (4) Dementia Current Visit: Yes Status: Acute Plan to address problem: Continue management by primary attending/psychiatry Subjective Date of service: 09/07/19 Principal diagnosis: ANNA Interval history: Pt awake, not oriented, confused. Objective - Vital Signs Vital signs: Vital Signs - 12hr 09/07/19 09/07/19 09/07/19 07:25 09:14 09:57 Temperature 98.1 F Pulse Rate 61 83 Respiratory 20 Rate Blood Pressure 174/81 125/53 O2 Sat by Pulse 94 95 Oximetry 09/07/19 10:00 Temperature Pulse Rate Respiratory 18 Rate Blood Pressure O2 Sat by Pulse 95 Oximetry - General Appearance General appearance: well-developed, well-nourished, appears stated age EENT: ATNC, PERRL, mucous membranes moist Neck: no JVD Respiratory: Present: Clear to Ascultation Cardiology: regular, S1S2 Gastrointestinal: normoactive bowel sounds Integumentary: no rash, other (no edema ) Neurologic: no focal deficit, strength 5/5, CN 3-12 intact Psychiatric: mood/affect appropriate - Lab 09/05/19 03:25 09/07/19 04:26 Most recent lab results Calcium 9.6 mg/dL (8.4-10.2) 09/07/19 04:26 Magnesium 2.00 mg/dL (1.7-2.3) 09/06/19 03:56 Urine Creatinine 230.6 mg/dL (0.1-20.0) H 09/05/19 15:35 Urine Sodium 88 mmol/L 09/05/19 15:35 Urine Total Protein 20 mg/dL (5-11.8) H 09/05/19 15:35 Medications & Allergies - Medications Allergies/Adverse Reactions: Allergies No Known Allergies Allergy (Verified 09/05/19 00:30) Home Medications: Home Medications Medication Instructions Recorded Confirmed Last Taken Type Aspirin 325 mg PO DAILY 09/05/19 09/05/19 Unknown History Escitalopram 10 mg PO DAILY 09/05/19 09/05/19 Unknown History Flonase 50 meq PO DAILY 09/05/19 09/05/19 Unknown History Levothyroxine 25 mg PO DAILY 09/05/19 09/05/19 Unknown History Memantine 5 mg PO DAILY 09/05/19 09/05/19 Unknown History Metoprolol [Lopressor TAB] 50 mg PO BID 09/05/19 09/05/19 Unknown History Pravastatin 40 mg PO HS 09/05/19 09/05/19 Unknown History RisperDAL 0.5 mg PO TID 09/05/19 09/05/19 Unknown History aMILoride/HYDROCHLOROTHIAZIDE 25 mg PO DAILY 09/05/19 09/05/19 Unknown History amLODIPine 5 mg PO DAILY 09/05/19 09/05/19 Unknown History levETIRAcetam 750 mg PO TID 09/05/19 09/05/19 Unknown History Active Medications: Generic Name Dose Route Start Last Admin Trade Name Freq PRN Reason Stop Dose Admin Acetaminophen 650 mg 09/05/19 02:20 Tylenol PO Q4H PRN Pain MILD(1-3)/Fever >100.5/ROBERTS Amlodipine Besylate 5 mg 09/05/19 10:00 09/07/19 09:57 Amlodipine PO 5 mg DAILY VISHAL Administration Aspirin 325 mg 09/05/19 10:00 09/07/19 09:54 Aspirin PO 325 mg DAILY VISHAL Administration Enoxaparin Sodium 40 mg 09/07/19 10:00 09/07/19 09:54 Enoxaparin SUB-Q 40 mg QDAY@1000 VISHAL Administration Escitalopram Oxalate 10 mg 09/05/19 10:00 09/07/19 09:54 Lexapro PO 10 mg DAILY VISHAL Administration Sodium Chloride 1,000 mls @ 125 mls/hr 09/05/19 03:00 Nacl 0.45% 1000 Ml IV DIRECT VISHAL Levetiracetam 750 mg 09/05/19 08:00 09/07/19 14:34 Keppra PO 750 mg TID VISHAL Administration Levothyroxine Sodium 25 mcg 09/05/19 06:00 09/07/19 05:59 Synthroid PO Not Given DAILY@0600 VISHAL Memantine 5 mg 09/05/19 10:00 09/07/19 09:58 Memantine PO 5 mg DAILY VISHAL Administration Metoprolol Tartrate 50 mg 09/05/19 10:00 09/07/19 09:58 Metoprolol PO 50 mg BID VISHAL Administration Ondansetron HCl 4 mg 09/05/19 02:20 Zofran IV Q8H PRN Nausea And Vomiting Pravastatin Sodium 40 mg 09/05/19 22:00 09/06/19 23:47 Pravachol PO Not Given QHS VISHAL Risperidone 0.5 mg 09/05/19 08:00 09/07/19 14:34 Risperdal PO 0.5 mg TID VISHAL Administration Sodium Chloride 10 ml 09/05/19 10:00 09/07/19 09:58 Sodium Chloride Flush Syringe 10 Ml IV Not Given BID VISHAL Sodium Chloride 10 ml 09/05/19 02:20 Sodium Chloride Flush Syringe 10 Ml IV PRN PRN LINE FLUSH
--- NOTE | 2019-09-08 07:34 | Event Note ---
Date: 09/08/19 Patient is medically cleared to go to psych facility.
[2019-09-08] MEDS: risperiDONE 0.25 MG TAB PO SCH ×4 (10:01→22:39)
[2019-09-08] MEDS: MEMANTINE 5 MG TAB PO SCH (10:01)
[2019-09-08] MEDS: ESCITALOPRAM 10 MG TAB PO SCH (10:02)
[2019-09-08] MEDS: amLODIPine 5 MG TAB PO SCH (10:02)
[2019-09-08] MEDS: METOPROLOL TARTRATE 50 MG TAB PO SCH ×3 (10:02→22:40)
[2019-09-08] MEDS: levETIRAcetam 500 MG/5 ML ORAL LIQD PO SCH ×3 (10:02→22:37)
[2019-09-08] MEDS: ENOXAPARIN 40 MG/0.4 ML INJ SUB-Q SCH (10:02)
[2019-09-08] MEDS: ASPIRIN 325 MG TAB PO SCH (10:02)
--- NOTE | 2019-09-08 14:10 | Progress Note ---
Assessment and Plan Assessment and plan: Acute kidney injury due to vasomotor nephropathy Improving. Cr was 2.3 on admission, now down to 1.4 On IV fluid, held diuretic Nephrology following patient stable to d/c home Acute metabolic encephalopathy, improved neurochecks supportive care Hypertension continue outpatient medications Hypothyroidism continue Synthroid Dementia Continue Namenda, Risperdal, Lexapro Patient medically stable for discharge. Discussed with case management. She states daughter refuses to come pick mother up. History Interval history: Altered mental status, improved Hospitalist Physical - Physical exam Narrative exam: Gen: Not in acute distress, lying in bed HEENT: Normocephalic, atraumatic Neck: supple, no JVD Heart: S1 and S2 reg, no murmurs, rubs or gallop Lungs: Clear to auscultation, no wheezing Abd: soft, non tender , non distended, normal BS Ext: No edema, no clubbing, no cyanosis Neuro: Awake,alert, calm,moves all ext - Constitutional Vitals: Temp Pulse Resp BP Pulse Ox 97.8 F 68 18 158/84 91 09/08/19 09:27 09/08/19 09:24 09/08/19 10:00 09/08/19 09:24 09/08/19 10:00 Results - Labs CBC & Chem 7: 09/05/19 03:25 09/08/19 05:50 Labs: Laboratory Last Values WBC 8.2 K/mm3 (4.5-11.0) 09/05/19 03:25 RBC 4.23 M/mm3 (3.65-5.03) 09/05/19 03:25 Hgb 13.0 gm/dl (10.1-14.3) 09/05/19 03:25 Hct 39.9 % (30.3-42.9) 09/05/19 03:25 MCV 94 fl (79-97) 09/05/19 03:25 MCH 31 pg (28-32) 09/05/19 03:25 MCHC 33 % (30-34) 09/05/19 03:25 RDW 14.2 % (13.2-15.2) 09/05/19 03:25 Plt Count 346 K/mm3 (140-440) 09/05/19 03:25 Lymph % (Auto) 26.0 % (13.4-35.0) 09/05/19 03:25 [place] % (Auto) 10.1 % (0.0-7.3) H 09/05/19 03:25 Eos % (Auto) 2.3 % (0.0-4.3) 09/05/19 03:25 Baso % (Auto) 0.5 % (0.0-1.8) 09/05/19 03:25 Lymph # 2.1 K/mm3 (1.2-5.4) 09/05/19 03:25 [place] # 0.8 K/mm3 (0.0-0.8) 09/05/19 03:25 Eos # 0.2 K/mm3 (0.0-0.4) 09/05/19 03:25 Baso # 0.0 K/mm3 (0.0-0.1) 09/05/19 03:25 Seg Neutrophils % 61.1 % (40.0-70.0) 09/05/19 03:25 Seg Neutrophils # 5.0 K/mm3 (1.8-7.7) 09/05/19 03:25 Sodium 141 mmol/L (137-145) 09/07/19 04:26 Potassium 3.6 mmol/L (3.6-5.0) 09/07/19 04:26 Chloride 106.2 mmol/L (98-107) 09/07/19 04:26 Carbon Dioxide 24 mmol/L (22-30) 09/07/19 04:26 Anion Gap 14 mmol/L 09/07/19 04:26 BUN 21 mg/dL (7-17) H 09/08/19 05:50 Creatinine 1.4 mg/dL (0.7-1.2) H 09/08/19 05:50 Estimated GFR 44 ml/min 09/08/19 05:50 BUN/Creatinine Ratio 18 % 09/07/19 04:26 Glucose 101 mg/dL (65-100) H 09/07/19 04:26 Calcium 9.6 mg/dL (8.4-10.2) 09/07/19 04:26 Magnesium 2.00 mg/dL (1.7-2.3) 09/06/19 03:56 Total Bilirubin 0.40 mg/dL (0.1-1.2) 09/04/19 22:44 AST 20 units/L (5-40) 09/04/19 22:44 ALT 15 units/L (7-56) 09/04/19 22:44 Alkaline Phosphatase 144 units/L (35-129) H 09/04/19 22:44 Total Protein 7.5 g/dL (6.3-8.2) 09/04/19 22:44 Albumin 3.7 g/dL (3.9-5) L 09/04/19 22:44 Albumin/Globulin Ratio 1.0 % 09/04/19 22:44 Urine Color Yellow (Yellow) 09/05/19 15:35 Urine Turbidity Clear (Clear) 09/05/19 15:35 Urine pH 5.0 (5.0-7.0) 09/05/19 15:35 Ur Specific [place] 1.017 (1.003-1.030) 09/05/19 15:35 Urine Protein <15 mg/dl mg/dL (Negative) 09/05/19 15:35 Urine Glucose (UA) Neg mg/dL (Negative) 09/05/19 15:35 Urine Ketones Tr mg/dL (Negative) 09/05/19 15:35 Urine Blood Neg (Negative) 09/05/19 15:35 Urine Nitrite Neg (Negative) 09/05/19 15:35 Urine Bilirubin Neg (Negative) 09/05/19 15:35 Urine Urobilinogen 2.0 mg/dL (<2.0) 09/05/19 15:35 Ur Leukocyte Esterase Neg (Negative) 09/05/19 15:35 Urine WBC (Auto) 1.0 /HPF (0.0-6.0) 09/05/19 15:35 Urine RBC (Auto) 1.0 /HPF (0.0-6.0) 09/05/19 15:35 U Epithel Cells (Auto) 1.0 /HPF (0-13.0) 09/05/19 15:35 Urine Creatinine 230.6 mg/dL (0.1-20.0) H 09/05/19 15:35 Urine Sodium 88 mmol/L 09/05/19 15:35 Urine Total Protein 20 mg/dL (5-11.8) H 09/05/19 15:35 Salicylates 0.4 mg/dL (2.8-20.0) L 09/04/19 22:44 Urine Opiates Screen Presumptive negative 09/05/19 00:06 Urine Methadone Screen Presumptive negative 09/05/19 00:06 Acetaminophen < 5.0 ug/mL (10.0-30.0) L 09/04/19 22:44 Ur Barbiturates Screen Presumptive negative 09/05/19 00:06 Ur Phencyclidine Scrn Presumptive negative 09/05/19 00:06 Ur Amphetamines Screen Presumptive negative 09/05/19 00:06 U Benzodiazepines Scrn Presumptive negative 09/05/19 00:06 Urine Cocaine Screen Presumptive negative 09/05/19 00:06 U Marijuana (THC) Screen Presumptive negative 09/05/19 00:06 Drugs of Abuse Note Disclamer 09/05/19 00:06 Plasma/Serum Alcohol < 0.01 % (0-0.07) 09/04/19 22:44 Active Medications - Current Medications Current Medications: Generic Name Dose Route Start Last Admin Trade Name Freq PRN Reason Stop Dose Admin Acetaminophen 650 mg 09/05/19 02:20 Tylenol PO Q4H PRN Pain MILD(1-3)/Fever >100.5/ROBERTS Amlodipine Besylate 5 mg 09/05/19 10:00 09/08/19 10:02 Amlodipine PO 5 mg DAILY VISHAL Administration Aspirin 325 mg 09/05/19 10:00 09/08/19 10:02 Aspirin PO 325 mg DAILY VISHAL Administration Enoxaparin Sodium 40 mg 09/07/19 10:00 09/08/19 10:02 Enoxaparin SUB-Q 40 mg QDAY@1000 VISHAL Administration Escitalopram Oxalate 10 mg 09/05/19 10:00 09/08/19 10:02 Lexapro PO 10 mg DAILY VISHAL Administration Sodium Chloride 1,000 mls @ 125 mls/hr 09/05/19 03:00 Nacl 0.45% 1000 Ml IV DIRECT VISHAL Levetiracetam 750 mg 09/05/19 08:00 09/08/19 14:02 Keppra PO 750 mg TID VISHAL Administration Levothyroxine Sodium 25 mcg 09/05/19 06:00 09/07/19 05:59 Synthroid PO Not Given DAILY@0600 VIHSAL Memantine 5 mg 09/05/19 10:00 09/08/19 10:01 Memantine PO 5 mg DAILY VISHAL Administration Metoprolol Tartrate 50 mg 09/05/19 10:00 09/08/19 10:02 Metoprolol PO 50 mg BID VISHAL Administration Ondansetron HCl 4 mg 09/05/19 02:20 Zofran IV Q8H PRN Nausea And Vomiting Pravastatin Sodium 40 mg 09/05/19 22:00 09/06/19 23:47 Pravachol PO Not Given QHS VISHAL Risperidone 0.5 mg 09/05/19 08:00 09/08/19 14:02 Risperdal PO 0.5 mg TID VISHAL Administration Sodium Chloride 10 ml 09/05/19 10:00 09/08/19 10:09 Sodium Chloride Flush Syringe 10 Ml IV Not Given BID VISHAL Sodium Chloride 10 ml 09/05/19 02:20 Sodium Chloride Flush Syringe 10 Ml IV PRN PRN LINE FLUSH
--- NOTE | 2019-09-08 16:49 | Progress Note ---
Assessment and Plan - Patient Problems (1) Acute kidney injury Current Visit: Yes Status: Acute Plan to address problem: Acute kidney injury secondary to prerenal azotemia secondary to volume depletion secondary to diuretics, superimposed on CKD. renal US shows echogenic kidneys b/l c/w CKD. renal function improving with IV hydration (2) Hypokalemia Current Visit: Yes Status: Acute Plan to address problem: Thiazide diuretic on hold. Supplement potassium and follow-up level. (3) Hypertension Current Visit: Yes Status: Acute Plan to address problem: Follow blood pressure and start hydralazine if it becomes elevated. We'll avoid negative chronotropic drugs as heart rate was low on presentation. (4) Dementia Current Visit: Yes Status: Acute Plan to address problem: Continue management by primary attending/psychiatry Subjective Date of service: 09/08/19 Principal diagnosis: ANNA Interval history: Pt awake, alert, in NAD. Objective - Vital Signs Vital signs: Vital Signs - 12hr 09/08/19 09/08/19 09/08/19 09:24 09:27 10:00 Temperature 97.8 F Pulse Rate 68 Respiratory 18 18 Rate Blood Pressure 158/84 O2 Sat by Pulse 91 94 Oximetry - General Appearance General appearance: well-developed, well-nourished, appears stated age EENT: ATNC, PERRL, mucous membranes moist Neck: no JVD Respiratory: Present: Clear to Ascultation Cardiology: regular, S1S2 Gastrointestinal: normoactive bowel sounds Integumentary: no rash, other (no edema ) Neurologic: no focal deficit, strength 5/5, CN 3-12 intact Psychiatric: mood/affect appropriate, cooperative - Lab 09/05/19 03:25 09/08/19 05:50 Most recent lab results Calcium 9.6 mg/dL (8.4-10.2) 09/07/19 04:26 Magnesium 2.00 mg/dL (1.7-2.3) 09/06/19 03:56 Urine Creatinine 230.6 mg/dL (0.1-20.0) H 09/05/19 15:35 Urine Sodium 88 mmol/L 09/05/19 15:35 Urine Total Protein 20 mg/dL (5-11.8) H 09/05/19 15:35 Medications & Allergies - Medications Allergies/Adverse Reactions: Allergies No Known Allergies Allergy (Verified 09/05/19 00:30) Home Medications: Home Medications Medication Instructions Recorded Confirmed Last Taken Type Aspirin 325 mg PO DAILY 09/05/19 09/05/19 Unknown History Escitalopram 10 mg PO DAILY 09/05/19 09/05/19 Unknown History Flonase 50 meq PO DAILY 09/05/19 09/05/19 Unknown History Levothyroxine 25 mg PO DAILY 09/05/19 09/05/19 Unknown History Memantine 5 mg PO DAILY 09/05/19 09/05/19 Unknown History Metoprolol [Lopressor TAB] 50 mg PO BID 09/05/19 09/05/19 Unknown History Pravastatin 40 mg PO HS 09/05/19 09/05/19 Unknown History RisperDAL 0.5 mg PO TID 09/05/19 09/05/19 Unknown History aMILoride/HYDROCHLOROTHIAZIDE 25 mg PO DAILY 09/05/19 09/05/19 Unknown History amLODIPine 5 mg PO DAILY 09/05/19 09/05/19 Unknown History levETIRAcetam 750 mg PO TID 09/05/19 09/05/19 Unknown History Active Medications: Generic Name Dose Route Start Last Admin Trade Name Freq PRN Reason Stop Dose Admin Acetaminophen 650 mg 09/05/19 02:20 Tylenol PO Q4H PRN Pain MILD(1-3)/Fever >100.5/ROBERTS Amlodipine Besylate 5 mg 09/05/19 10:00 09/08/19 10:02 Amlodipine PO 5 mg DAILY VISHAL Administration Aspirin 325 mg 09/05/19 10:00 09/08/19 10:02 Aspirin PO 325 mg DAILY VISHAL Administration Enoxaparin Sodium 40 mg 09/07/19 10:00 09/08/19 10:02 Enoxaparin SUB-Q 40 mg QDAY@1000 VISHAL Administration Escitalopram Oxalate 10 mg 09/05/19 10:00 09/08/19 10:02 Lexapro PO 10 mg DAILY VISHAL Administration Sodium Chloride 1,000 mls @ 125 mls/hr 09/05/19 03:00 Nacl 0.45% 1000 Ml IV DIRECT VISHAL Levetiracetam 750 mg 09/05/19 08:00 09/08/19 14:02 Keppra PO 750 mg TID VISHAL Administration Levothyroxine Sodium 25 mcg 09/05/19 06:00 09/07/19 05:59 Synthroid PO Not Given DAILY@0600 VISHAL Memantine 5 mg 09/05/19 10:00 09/08/19 10:01 Memantine PO 5 mg DAILY VISHAL Administration Metoprolol Tartrate 50 mg 09/05/19 10:00 09/08/19 10:02 Metoprolol PO 50 mg BID VISHAL Administration Ondansetron HCl 4 mg 09/05/19 02:20 Zofran IV Q8H PRN Nausea And Vomiting Pravastatin Sodium 40 mg 09/05/19 22:00 09/06/19 23:47 Pravachol PO Not Given QHS VISHAL Risperidone 0.5 mg 09/05/19 08:00 09/08/19 14:02 Risperdal PO 0.5 mg TID VISHAL Administration Sodium Chloride 10 ml 09/05/19 10:00 09/08/19 10:09 Sodium Chloride Flush Syringe 10 Ml IV Not Given BID VISHAL Sodium Chloride 10 ml 09/05/19 02:20 Sodium Chloride Flush Syringe 10 Ml IV PRN PRN LINE FLUSH
[2019-09-08] MEDS: PRAVASTATIN 40 MG TAB PO SCH ×2 (22:36→22:37)
[2019-09-09] MEDS: LEVOTHYROXINE 25 MCG TAB PO SCH (05:40)
[2019-09-09] MEDS: risperiDONE 0.25 MG TAB PO SCH ×2 (08:35→15:18)
[2019-09-09] MEDS: levETIRAcetam 500 MG/5 ML ORAL LIQD PO SCH ×2 (08:35→15:18)
[2019-09-09] MEDS: ESCITALOPRAM 10 MG TAB PO SCH (09:09)
[2019-09-09] MEDS: ENOXAPARIN 40 MG/0.4 ML INJ SUB-Q SCH (09:09)
[2019-09-09] MEDS: METOPROLOL TARTRATE 50 MG TAB PO SCH (09:14)
[2019-09-09] MEDS: ASPIRIN 325 MG TAB PO SCH (09:14)
[2019-09-09] MEDS: amLODIPine 5 MG TAB PO SCH (09:14)
[2019-09-09] MEDS: MEMANTINE 5 MG TAB PO SCH (09:15)
--- NOTE | 2019-09-09 10:37 | Discharge Summary ---
Providers - Providers Date of Admission: 09/05/19 05:20 Date of discharge: 09/09/19 Attending physician: ROBY WHITLEY 09/05/19 01:36 Consult to Physician [CONS] Urgent Comment: DANUTA Consulting Provider: CHUCHO IVERSON Physician Instructions: WAS NOTIFIED Reason For Exam: acute renal insufficiency 09/05/19 11:20 Physical Therapy Evaluation and Treat [CONS] Routine Comment: Reason For Exam: Weakness Primary care physician: CELSA PARADA Hospitalization Reason for admission: ANNA Condition: Stable Hospital course: 78-year-old lady discharged from [place] to the [facility] and became combative there and so she was brought to the hospital. Labs showed elevated BUNs/creatinine at 30/2.3 mg/dL. The patient was admitted with diagnosis of acute kidney injury and metabolic encephalopathy. The patient was seen by nephrology on admission. Patient's creatinine improved to normal range of 1.3 with IV fluid hydration and holding diuretics. Renal US showed echogenic kidneys b/l c/w CKD. The patient is back to her baseline mental status and is felt to have received maximal hospital benefit for discharge. Dedicated discharge time 32 minutes Disposition: [id number] TO HOME OR SELFCARE Time spent for discharge: 32 - Discharge Diagnoses (1) Acute kidney injury Status: Acute (2) Acute renal insufficiency Status: Acute (3) Dementia Status: Acute (4) Hypertension Status: Acute (5) Hypokalemia Status: Acute Core Measure Documentation - Palliative Care Palliative Care/ Comfort Measures: Not Applicable - Core Measures Any of the following diagnoses?: none Exam - Constitutional Vitals: Temp Pulse Resp BP Pulse Ox 97.6 F 103 H 18 112/66 95 09/09/19 01:54 09/09/19 01:54 09/09/19 01:54 09/09/19 01:54 09/09/19 01:54 General appearance: Present: no acute distress, well-nourished - EENT Eyes: Present: PERRL ENT: hearing intact, clear oral mucosa - Neck Neck: Present: supple, normal ROM - Respiratory Respiratory effort: normal Respiratory: bilateral: CTA - Cardiovascular Heart Sounds: Present: S1 & S2. Absent: rub, click - Extremities Extremities: pulses symmetrical, No edema Peripheral Pulses: within normal limits - Abdominal General gastrointestinal: Present: soft, non-tender, non-distended, normal bowel sounds Female genitourinary: Present: normal - Integumentary Integumentary: Present: clear, warm, dry - Musculoskeletal Musculoskeletal: gait normal, strength equal bilaterally - Psychiatric Psychiatric: appropriate mood/affect, intact judgment & insight - Neurologic Neurologic: CNII-XII intact, moves all extremities Plan Activity: advance as tolerated Weight Bearing Status: Weight Bear as Tolerated Diet: renal Follow up with: CELSA PARADA MD [Primary Care Provider] - 3-5 Days SHERI INMAN MD [Staff Physician] - 7 Days Prescriptions: amLODIPine 5 mg PO DAILY #30 Aspirin 325 mg PO DAILY #30 Escitalopram 10 mg PO DAILY #30 levETIRAcetam 750 mg PO TID #90 Levothyroxine 25 mg PO DAILY #30 Metoprolol [Lopressor TAB] 50 mg PO BID #60 Memantine 5 mg PO DAILY #30 Pravastatin 40 mg PO HS #30 RisperDAL 0.5 mg PO TID #90
--- NOTE | 2019-09-09 13:31 | Progress Note ---
Assessment and Plan - Patient Problems (1) Acute kidney injury Current Visit: Yes Status: Acute Plan to address problem: Acute kidney injury secondary to prerenal azotemia secondary to volume depletion secondary to diuretics, superimposed on CKD. renal US shows echogenic kidneys b/l c/w CKD. renal function improved with IV hydration (2) Hypokalemia Current Visit: Yes Status: Acute Plan to address problem: Thiazide diuretic on hold. Supplement potassium and follow-up level. (3) Hypertension Current Visit: Yes Status: Acute Plan to address problem: Follow blood pressure and start hydralazine if it becomes elevated. We'll avoid negative chronotropic drugs as heart rate was low on presentation. (4) Dementia Current Visit: Yes Status: Acute Plan to address problem: Continue management by primary attending/psychiatry Subjective Date of service: 09/09/19 Principal diagnosis: ANNA Interval history: Pt awake, alert, in NAD. Objective - Vital Signs Vital signs: Vital Signs - 12hr 09/09/19 01:54 Temperature 97.6 F Pulse Rate 103 H Respiratory 18 Rate Blood Pressure 112/66 [Left] O2 Sat by Pulse 95 Oximetry - General Appearance General appearance: well-developed, well-nourished, appears stated age EENT: ATNC, PERRL, mucous membranes moist Neck: no JVD Respiratory: Present: Clear to Ascultation Cardiology: regular, S1S2 Gastrointestinal: normoactive bowel sounds Integumentary: no rash Neurologic: no focal deficit, alert and oriented x3, strength 5/5, CN 3-12 intact Psychiatric: mood/affect appropriate, cooperative - Lab 09/05/19 03:25 09/08/19 05:50 Most recent lab results Calcium 9.6 mg/dL (8.4-10.2) 09/07/19 04:26 Magnesium 2.00 mg/dL (1.7-2.3) 09/06/19 03:56 Urine Creatinine 230.6 mg/dL (0.1-20.0) H 09/05/19 15:35 Urine Sodium 88 mmol/L 09/05/19 15:35 Urine Total Protein 20 mg/dL (5-11.8) H 09/05/19 15:35 Medications & Allergies - Medications Allergies/Adverse Reactions: Allergies No Known Allergies Allergy (Verified 09/05/19 00:30) Home Medications: Home Medications Medication Instructions Recorded Confirmed Last Taken Type Flonase 50 meq PO DAILY 09/05/19 09/05/19 Unknown History Aspirin 325 mg PO DAILY #30 09/09/19 Unknown Rx Escitalopram 10 mg PO DAILY #30 09/09/19 Unknown Rx Levothyroxine 25 mg PO DAILY #30 09/09/19 Unknown Rx Memantine 5 mg PO DAILY #30 09/09/19 Unknown Rx Metoprolol [Lopressor TAB] 50 mg PO BID #60 09/09/19 Unknown Rx Pravastatin 40 mg PO HS #30 09/09/19 Unknown Rx RisperDAL 0.5 mg PO TID #90 09/09/19 Unknown Rx amLODIPine 5 mg PO DAILY #30 09/09/19 Unknown Rx levETIRAcetam 750 mg PO TID #90 09/09/19 Unknown Rx Active Medications: Generic Name Dose Route Start Last Admin Trade Name Freq PRN Reason Stop Dose Admin Acetaminophen 650 mg 09/05/19 02:20 Tylenol PO Q4H PRN Pain MILD(1-3)/Fever >100.5/ROBERTS Amlodipine Besylate 5 mg 09/05/19 10:00 09/09/19 09:14 Amlodipine PO 5 mg DAILY VISHAL Administration Aspirin 325 mg 09/05/19 10:00 09/09/19 09:14 Aspirin PO 325 mg DAILY VISHAL Administration Enoxaparin Sodium 40 mg 09/07/19 10:00 09/09/19 09:09 Enoxaparin SUB-Q 40 mg QDAY@1000 VISHAL Administration Escitalopram Oxalate 10 mg 09/05/19 10:00 09/09/19 09:09 Lexapro PO 10 mg DAILY VISHAL Administration Sodium Chloride 1,000 mls @ 125 mls/hr 09/05/19 03:00 Nacl 0.45% 1000 Ml IV DIRECT VISHAL Levetiracetam 750 mg 09/05/19 08:00 09/09/19 08:35 Keppra PO 750 mg TID VISHAL Administration Levothyroxine Sodium 25 mcg 09/05/19 06:00 09/09/19 05:40 Synthroid PO 25 mcg DAILY@0600 VISHAL Administration Memantine 5 mg 09/05/19 10:00 09/09/19 09:15 Memantine PO 5 mg DAILY VISHAL Administration Metoprolol Tartrate 50 mg 09/05/19 10:00 09/09/19 09:14 Metoprolol PO 50 mg BID VISHAL Administration Ondansetron HCl 4 mg 09/05/19 02:20 Zofran IV Q8H PRN Nausea And Vomiting Pravastatin Sodium 40 mg 09/05/19 22:00 09/08/19 22:37 Pravachol PO 40 mg QHS VISHAL Administration Risperidone 0.5 mg 09/05/19 08:00 09/09/19 08:35 Risperdal PO 0.5 mg TID VISHAL Administration Sodium Chloride 10 ml 09/05/19 10:00 09/08/19 22:48 Sodium Chloride Flush Syringe 10 Ml IV Not Given BID VISHAL Sodium Chloride 10 ml 09/05/19 02:20 Sodium Chloride Flush Syringe 10 Ml IV PRN PRN LINE FLUSH
--- NOTE | 2019-09-09 15:32 | XRay Report ---
CHEST 1 VIEW INDICATION: R/O TB. COMPARISON: None. FINDINGS: Support devices: None. Heart: Within normal limits. Lungs/Pleura: No acute air space or interstitial disease. No evidence of active tuberculosis. Additional findings: None. IMPRESSION: No acute abnormality. Signer Name: Robert Dickerson MD Signed: 09/09/2019 3:27 PM Workstation Name: [email or web address]
[2019-09-09 16:25] VITALS: BP 122/67
[2019-09-09] MEDS ORDERED: HALOPERIDOL DECANOATE 100 MG/1 ML INJ IM ONE (16:25)
== END 2019-09-09 16:45 | disposition home or self-care (01) | DRG 682 ==
LOC: ED 21:04 → 2B-ACE 09-05 05:20
PROVIDERS: ADMIT Internal Medicine; ATTEND Hospitalist
DX: N17.0 Acute kidney failure with tubular necrosis (principal); G93.41 Metabolic encephalopathy; F03.90 Unspecified dementia, unspecified severity, without behavioral disturbance, psychotic disturbance, mood disturbance, and anxiety; E87.6 Hypokalemia; E03.9 Hypothyroidism, unspecified; I12.9 Hypertensive chronic kidney disease with stage 1 through stage 4 chronic kidney disease, or unspecified chronic kidney disease; N18.9 Chronic kidney disease, unspecified; T50.2X5A Adverse effect of carbonic-anhydrase inhibitors, benzothiadiazides and other diuretics, initial encounter; E78.5 Hyperlipidemia, unspecified; Z79.82 Long term (current) use of aspirin; Z79.899 Other long term (current) drug therapy; Y92.89 Other specified places as the place of occurrence of the external cause
CPT/HCPCS: 36415; 71045; 76770; 80048; 80053; 80307; 80320; 81001; 82565; 82570; 83735; 84156; 84300; 84520; 85025; G0378; A9270-GY; G0480; J1631; J1650; J7030